=== PATIENT | female | born 1980 | race Caucasian/White ===

== ENCOUNTER 2021-01-12 11:20 | Day surgery (SDC) | payer BC ==
[2021-01-06 10:31] VITALS: BMI 22.1
[2021-01-12] MEDS ORDERED: SODIUM BICARBONATE 8.4% 50 MEQ/50 ML VIAL ONE (11:35)
[2021-01-12] MEDS ORDERED: LIDOCAINE 1%/EPI 1:100000 (20 ML MULTI DOSE VIAL) ONE (11:35)
[2021-01-12] MEDS ORDERED: LIDOCAINE HCL 2% (50ML VIAL) INF ONE (13:14)
[2021-01-12] MEDS ORDERED: BUPIVACAINE HCL/PF 0.5% (5 MG/ML) 30 ML VIAL IJ ONE (13:25)
[2021-01-12 14:02] VITALS: TEMP 98.4
[2021-01-12 14:12] VITALS: BP 100/64; PULSE 70
== END 2021-01-12 13:55 | disposition home or self-care (01) ==
LOC: FASU 11:20
PROVIDERS: ATTEND Orthopaedic Surgery Hand Surgery
PROC: 0RNU0ZZ Release Right Metacarpophalangeal Joint, Open Approach (ICD-10-PCS; 2021-01-12)
PROC: 0LN70ZZ Release Right Hand Tendon, Open Approach (ICD-10-PCS; principal; 2021-01-12 12:48)
DX: M65.321 Trigger finger, right index finger (principal); M24.241 Disorder of ligament, right hand; M89.8X4 Other specified disorders of bone, hand
CPT/HCPCS: 84703